=== PATIENT | female | born 1985 | race Caucasian/White ===

== ENCOUNTER 2018-08-26 12:22 | Outpatient (CLI) | payer MEDICAID | END 2018-08-26 15:14 | disposition home or self-care (01) | LOC: OBT 12:22 → L-D 12:22 → OBT 15:14 | DX: O36.8330 Maternal care for abnormalities of the fetal heart rate or rhythm, third trimester, not applicable or unspecified (principal); O24.419 Gestational diabetes mellitus in pregnancy, unspecified control; O09.523 Supervision of elderly multigravida, third trimester; Z3A.38 38 weeks gestation of pregnancy ==

== ENCOUNTER 2018-08-28 19:42 | Outpatient (CLI) | payer MEDICAID | END 2018-08-28 20:44 | disposition home or self-care (01) | LOC: OBT 19:42 → L-D 19:43 → OBT 20:44 | DX: O36.8330 Maternal care for abnormalities of the fetal heart rate or rhythm, third trimester, not applicable or unspecified (principal); O24.410 Gestational diabetes mellitus in pregnancy, diet controlled; O09.523 Supervision of elderly multigravida, third trimester; Z3A.38 38 weeks gestation of pregnancy | CPT/HCPCS: 76818 ==

== ENCOUNTER 2018-09-05 10:06 | Inpatient (IN) | payer MEDICAID ==
[2018-09-05] MEDS ORDERED: METHYLERGONOVINE 0.2 MG INJ IM (11:00)
[2018-09-05] MEDS ORDERED: LIDOCAINE 1% (MPF) 30 ML INJ INJ (11:00)
[2018-09-05] MEDS ORDERED: BUTORPHANOL 2 MG INJ IV (11:00)
[2018-09-05] MEDS ORDERED: IBUPROFEN 600 MG TAB PO (11:00)
[2018-09-05] MEDS ORDERED: OXYTOCIN 30 UNITS/LR 500 ML IV ×2 (11:00)
[2018-09-05] MEDS ORDERED: MISOPROSTOL 200 MCG TAB PR (11:00)
[2018-09-05] MEDS ORDERED: CARBOPROST 250 MCG INJ IM (11:00)
[2018-09-05 11:08] LABS: ADD MAN DIFF? NO
[2018-09-05 11:09] LABS: WHITE BLOOD COUNT 5.7 10^3/ul (4.8-10.8)
[2018-09-05 11:09] LABS: BASOPHILS % 0.4 % (0.0-2.0); EOSINOPHILS % 0.7 % (0.0-7.0); HEMATOCRIT 39.9 % (37.0-47.0); HEMOGLOBIN 13.1 g/dl (12.0-16.0); LYMPHOCYTES # 1.3 10^3/ul (0.8-2.9); LYMPHOCYTES % 22.2 % (15.0-51.0); MEAN CORPUSCULAR HEMOGLOBIN 30.4 pg (29.0-33.0); MEAN CORPUSCULAR HGB CONC 32.8 g/dl (32.0-37.0); MEAN CORPUSCULAR VOLUME 92.6 fl (82.0-101.0); MEAN PLATELET VOLUME 10.9 fl (7.4-10.4); MONOCYTE # 0.6 10^3/ul (0.3-0.9); MONOCYTES % 10.4 % (0.0-11.0); NEUTROPHIL # 3.7 10^3/ul (1.6-7.5); NEUTROPHILS % 65.8 % (39.0-77.0); PLATELET COUNT 184 10^3/UL (140-415); RED BLOOD COUNT 4.31 10^6/ul (4.20-5.40); RED CELL DISTRIBUTION WIDTH 14.1 % (11.5-14.5)
[2018-09-05 11:12] LABS: INR 0.82; PROTIME 11.4 Sec (11.9-14.9); PT RATIO 0.9
[2018-09-05 11:13] LABS: PARTIAL THROMBOPLASTIN TIME 27.7 Sec (23.0-35.0)
[2018-09-05] MEDS: LACTATED RINGER'S 1,000 ML IV ×2 (11:42→16:01)
[2018-09-05 11:44] LABS: GLUCOSE 82 mg/dl (70-220)
[2018-09-05] MEDS ORDERED: MISOPROSTOL 50 MCG CAPSULE (11:46)
[2018-09-05 12:17] LABS: HEPATITIS B SURFACE ANTIGEN NEGATIVE (NEGATIVE)
[2018-09-05] MEDS: MISOPROSTOL 50 MCG CAPSULE PO ×4 (16:01→20:27)
[2018-09-05 19:43] LABS: RAPID PLASMA REAGIN NONREACTIVE (NR)
[2018-09-06] MEDS: LACTATED RINGER'S 1,000 ML IV ×4 (04:06→12:18)
[2018-09-06] MEDS: MISOPROSTOL 50 MCG CAPSULE PO (04:56)
[2018-09-06] MEDS ORDERED: DIPHENHYDRAMINE 50 MG INJ IV ×2 (05:00→19:30)
[2018-09-06] MEDS ORDERED: ONDANSETRON 4 MG INJ IV ×2 (05:00→19:30)
[2018-09-06] MEDS ORDERED: HYDROmorphONE 0.5 MG/0.5 ML SYG IV ×4 (05:00→19:30)
[2018-09-06] MEDS ORDERED: NALOXONE (0.4 MG/ML) INJ IV ×2 (05:00→19:30)
[2018-09-06] MEDS ORDERED: NA BICARB 50 MEQ/50 ML VIAL (07:00)
[2018-09-06] MEDS ORDERED: EPHEDrine SULFATE 50 MG/5 ML SYG (07:00)
[2018-09-06] MEDS: FENTAnyl 2MCG/ML-ROPIV 0.2% 100 ML BAG EPI ×2 (07:04→15:03)
[2018-09-06] MEDS ORDERED: CEFAZOLIN 2 GM/50 ML (PMX) 50 ML IVPB ×2 (17:57→18:00)
[2018-09-06] MEDS ORDERED: OXYTOCIN 30 UNITS/LR 500 ML IV ×2 (18:00→21:30)
[2018-09-06] MEDS ORDERED: METHYLERGONOVINE 0.2 MG INJ IM ×2 (18:00→21:30)
[2018-09-06] MEDS ORDERED: CARBOPROST 250 MCG INJ IM ×2 (18:00→21:30)
[2018-09-06] MEDS ORDERED: MISOPROSTOL 200 MCG TAB PR ×2 (18:00→21:30)
[2018-09-06] MEDS ORDERED: FAMOTIDINE 20 MG INJ (18:05)
[2018-09-06] MEDS ORDERED: METOCLOPRAMIDE 10 MG INJ (18:05)
[2018-09-06] MEDS: METOCLOPRAMIDE 10 MG INJ IV (18:06)
[2018-09-06] MEDS: FAMOTIDINE 20 MG INJ IV (18:06)
[2018-09-06] MEDS ORDERED: FENTAnyl 50 MCG/ML VIAL (18:21)
[2018-09-06] MEDS ORDERED: morphine SULFATE/PF (10 MG/10 ML) INJ (18:22)
[2018-09-06] MEDS ORDERED: DEXAMETHASONE 4 MG/ML 1 ML INJ (18:48)
[2018-09-06] MEDS ORDERED: MIDAZOLAM 1 MG/ML 2 ML INJ (19:10)
[2018-09-06] MEDS ORDERED: PHENYLephrine (100 MCG/ML) 10ML SYG (19:28)
[2018-09-06] MEDS ORDERED: ZOLPIDEM 5 MG TAB PO (19:30)
[2018-09-06] MEDS: OXYTOCIN 30 UNITS/LR 500 ML IV (20:25)
[2018-09-06] MEDS: KETOROLAC 30 MG INJ IV (20:33)
[2018-09-06] MEDS: AZITHROMYCIN 500MG/NS (PMX) 250 ML IVPB (20:39)
[2018-09-06] MEDS: IBUPROFEN 800 MG TAB PO (22:00)
[2018-09-06] MEDS: CEFAZOLIN 2 GM/50 ML (PMX) 50 ML IVPB (23:31)
[2018-09-06] MEDS: CLINDAMYCIN 300 MG CAP PO (23:35)
[2018-09-07] MEDS: LACTATED RINGER'S 1,000 ML IV ×2 (02:12→12:20)
[2018-09-07] MEDS: KETOROLAC 30 MG INJ IV ×3 (04:47→17:30)
[2018-09-07] MEDS: CLINDAMYCIN 300 MG CAP PO ×4 (05:47→23:21)
[2018-09-07] MEDS: CEFAZOLIN 2 GM/50 ML (PMX) 50 ML IVPB ×2 (05:47→13:54)
[2018-09-07] MEDS: IBUPROFEN 800 MG TAB PO ×3 (06:00→21:32)
[2018-09-07] MEDS: LANOLIN HPA 1 PKT TOP (09:44)
[2018-09-07] MEDS: SENNA/DOCUSATE NA (8.6MG/50MG) TAB PO ×2 (09:44→21:31)
[2018-09-07 14:28] LABS: ADD MAN DIFF? NO
[2018-09-07 14:30] LABS: WHITE BLOOD COUNT 10.3 10^3/ul (4.8-10.8)
[2018-09-07 14:30] LABS: BASOPHILS % 0.3 % (0.0-2.0); EOSINOPHILS % 0.2 % (0.0-7.0); HEMATOCRIT 30.6 % (37.0-47.0); HEMOGLOBIN 10.1 g/dl (12.0-16.0); LYMPHOCYTES # 1.3 10^3/ul (0.8-2.9); LYMPHOCYTES % 12.5 % (15.0-51.0); MEAN CORPUSCULAR HEMOGLOBIN 30.3 pg (29.0-33.0); MEAN CORPUSCULAR VOLUME 91.9 fl (82.0-101.0); MEAN PLATELET VOLUME 10.9 fl (7.4-10.4); NEUTROPHIL # 7.9 10^3/ul (1.6-7.5); NEUTROPHILS % 76.5 % (39.0-77.0); PLATELET COUNT 172 10^3/UL (140-415); RED BLOOD COUNT 3.33 10^6/ul (4.20-5.40); RED CELL DISTRIBUTION WIDTH 14.3 % (11.5-14.5)
[2018-09-07] MEDS: BISACODYL 10 MG SUPP PR ×2 (21:38→22:19)
[2018-09-07] MEDS: HYDROCODONE/APAP (5/325) TAB PO (23:21)
[2018-09-08] MEDS: OXYCODONE/ACETAMINOPHEN (5/325) TAB PO ×4 (03:35→20:59)
[2018-09-08] MEDS: CLINDAMYCIN 300 MG CAP PO ×3 (06:09→17:55)
[2018-09-08] MEDS: IBUPROFEN 800 MG TAB PO ×3 (06:10→22:33)
[2018-09-08] MEDS: SENNA/DOCUSATE NA (8.6MG/50MG) TAB PO ×2 (09:53→22:34)
[2018-09-08] MEDS ORDERED: ACETAMINOPHEN 325 MG TAB PO (18:30)
[2018-09-09] MEDS: CLINDAMYCIN 300 MG CAP PO ×2 (00:10→05:41)
[2018-09-09] MEDS: HYDROCODONE/APAP (5/325) TAB PO (02:47)
[2018-09-09] MEDS: IBUPROFEN 800 MG TAB PO (05:41)
[2018-09-09] MEDS: NA PHOSPHATE/BIPHOS 133 ML ENEMA PR (08:51)
[2018-09-09] MEDS: SENNA/DOCUSATE NA (8.6MG/50MG) TAB PO (08:51)
[2018-09-09] MEDS: MEASLES,MUMPS,RUBELLA VACCINE INJ SC* (09:00)
[2018-09-09] MEDS: DIPHTH/TET/ACEL PERTUSS (ADULT) 0.5 ML VIAL IM* (09:00)
== END 2018-09-09 11:15 | disposition home or self-care (01) | DRG 788 ==
LOC: L-D 10:06 → PP1 09-06 22:31
PROVIDERS: Obstetrics & Gynecology
PROC: 10D00Z1 Extraction of Products of Conception, Low, Open Approach (ICD-10-PCS; principal; 2018-09-05)
DX: O36.63X0 Maternal care for excessive fetal growth, third trimester, not applicable or unspecified (principal); O24.429 Gestational diabetes mellitus in childbirth, unspecified control; O62.0 Primary inadequate contractions; O76 Abnormality in fetal heart rate and rhythm complicating labor and delivery; O99.214 Obesity complicating childbirth; E66.01 Morbid (severe) obesity due to excess calories; Z37.0 Single live birth; Z3A.39 39 weeks gestation of pregnancy
CPT/HCPCS: 62319; 76815; 82947; 82962; 85025; 85610; 85730; 86592; 86850; 86900; 86901; 87340; 99464